=== PATIENT | female | born 1985 | race Caucasian/White ===

== ENCOUNTER 2017-06-17 21:53 | Emergency (ER) | payer BC, OTHER ==
[~2017-06-17] VITALS: Ht 165.1 cm; Wt 56.4 kg
[~2017-06-17 21:53] MED LIST: /MOM400 PO; ACET50TA PO; ANUS2.5C2 TOP; CALC600T7 PO; DOCU10ELUD PO; IBUP600T26 PO; IBUP80TA PO; LANOOIN21 TOP; NORC1TAB4 PO; PNV-CAP5 PO; TYLE325T5 PO; VITMTA PO
[2017-06-17] MEDS ORDERED: CALC600T57 PO (22:08)
[2017-06-17] MEDS ORDERED: MORPHINE 2 MG/ML 1ML SYRINGE IV ONE (22:45)
[2017-06-17 23:13] LABS: MEAN CORPUSCULAR HEMOGLOBIN 29.1 pg (27.0-33.0); MEAN CORPUSCULAR HGB CONC 32.7 g/dl (32.0-36.5); MEAN CORPUSCULAR VOLUME 89.1 fl (80.0-96.0); PLATELET COUNT, AUTOMATED 192 10^3/uL (150-450); RED CELL DISTRIBUTION WIDTH 12.1 % (11.5-14.5); WHITE BLOOD COUNT 9.2 10^3/uL (4.0-10.0)
[2017-06-17 23:15] LABS: ADD MANUAL DIFFER YES; DIFF SLIDE NUMBER 188; POSITIVE DIFF POS FLAG; POSITIVE MORPH POS FLAG; WBC SCAT POS FLAG
[2017-06-17 23:44] LABS: BASOPHILS 1 % (0-4)
[2017-06-17 23:47] LABS: ALBUMIN 4.1 GM/DL (3.2-5.2); ALBUMIN/GLOBULIN RATIO 1.41 (1.00-1.93); ALKALINE PHOSPHATASE 72 U/L (45-117); ALT/SGPT 22 U/L (12-78); ANION GAP 7 MEQ/L (8-16); AST/SGOT 7 U/L (7-37); BILIRUBIN,DIRECT 0.2 MG/DL (0.0-0.2); BILIRUBIN,TOTAL 0.7 MG/DL (0.2-1.0); BLOOD UREA NITROGEN 12 MG/DL (7-18); CALCIUM LEVEL 8.9 MG/DL (8.5-10.1); CARBON DIOXIDE LEVEL 29 MEQ/L (21-32); CHLORIDE LEVEL 106 MEQ/L (98-107); CREATININE FOR GFR 0.63 MG/DL (0.55-1.02); GLOMERULAR FILTRATION RATE > 60.0 (>60); GLUCOSE, FASTING 86 MG/DL (70-105); POTASSIUM SERUM 3.9 MEQ/L (3.5-5.1); SODIUM LEVEL 142 MEQ/L (136-145)
--- NOTE | 2017-06-18 00:20 | REPUSA ---
CLINICAL HISTORY: Pelvic pain. TECHNIQUE: Realtime sonographic images were obtained in multiple projections via TA approach. COMMENTS: The uterus is anteverted measuring 9.9x3.8x5.5 cm. The endometrial echo pattern is within normal limi ts measuring 6.5 mm. There is no evidence of free fluid within the pelvic cul-de-sac. The right ovary measures 2.5x1.9x1.9 cm and the left ovary measures 3.6x1.7 x 3 cm. Both ovaries are free of solid or cystic mass. There is no evidence for abnormal vascularity. IMPRESSION: Normal study. Thank you for your kind referral of this patient.
[2017-06-18] MEDS ORDERED: CIPR-249 PO (00:47)
[2017-06-18 00:55] VITALS: BP 104/55
[2017-06-18] MEDS ORDERED: CIPROFLOXACIN 500 MG TAB PO ONE (01:00)
== END 2017-06-18 01:05 | disposition home or self-care (01) ==
LOC: M ED 21:53
DX: N39.0 Urinary tract infection, site not specified (principal); Z79.899 Other long term (current) drug therapy; Z88.1 Allergy status to other antibiotic agents; Z88.2 Allergy status to sulfonamides; Z88.8 Allergy status to other drugs, medicaments and biological substances

== ENCOUNTER 2017-09-04 09:45 | Emergency (ER) | payer BC, OTHER ==
[2017-09-04] MEDS: ONDANSETRON 4MG/2ML VIAL (J2405) IV ×2 (10:15→11:59)
[2017-09-04] MEDS: NS 1,000 ML IV ×2 (10:31→13:02)
[2017-09-04] MEDS: MORPHINE 4 MG/ML 1ML VIAL (J2270) IV ×2 (10:31→11:51)
[2017-09-04 10:37] LABS: BASO % 0.3 % (0.0-1.0); HEMATOCRIT 46.2 % (36.0-47.0); HEMOGLOBIN 15.7 g/dl (12.0-16.0); IMMATURE GRANULOCYTE % 0.5 % (0-3.0); LYMPH % 1.2 % (24.0-44.0); MEAN CORPUSCULAR HEMOGLOBIN 29.2 pg (27.0-33.0); MONO # 0.2 10^3/uL (0.0-0.8); MONO % 2.7 % (0.0-5.0); NEUTROPHILS # 7.4 10^3/uL (1.8-7.7); NEUTROPHILS % 95.3 % (36.0-66.0); PLATELET COUNT, AUTOMATED 208 10^3/uL (150-450); RED BLOOD COUNT 5.37 10^6/uL (4.00-5.40); RED CELL DISTRIBUTION WIDTH 12.6 % (11.5-14.5); WHITE BLOOD COUNT 7.8 10^3/uL (4.0-10.0)
[2017-09-04 10:51] LABS: ANION GAP 8 MEQ/L (8-16); BLOOD UREA NITROGEN 15 MG/DL (7-18); CALCIUM LEVEL 8.9 MG/DL (8.5-10.1); CARBON DIOXIDE LEVEL 25 MEQ/L (21-32); CHLORIDE LEVEL 109 MEQ/L (98-107); CREATININE FOR GFR 0.95 MG/DL (0.55-1.30); GLOMERULAR FILTRATION RATE > 60.0 (>60); GLUCOSE, FASTING 147 MG/DL (70-100); POTASSIUM SERUM 3.6 MEQ/L (3.5-5.1); SODIUM LEVEL 142 MEQ/L (136-145)
[2017-09-04 11:09] LABS: HCG, SERUM QUANTITATIVE < 1.0 MIU/ML
[2017-09-04 11:23] LABS: LYMPH # 0.1 10^3/uL (1.5-4.5); POSITIVE DIFF POS FLAG
[2017-09-04] MEDS: LIDOCAINE 1% MDV 20ML VIAL IM (12:02)
[2017-09-04 12:31] LABS: INFLUENZA A AMPLIFICATION NEGATIVE (NEGATIVE); INFLUENZA B AMPLIFICATION NEGATIVE (NEGATIVE)
== END 2017-09-04 14:20 | disposition home or self-care (01) ==
LOC: M ED 09:45
DX: S01.81XA Laceration without foreign body of other part of head, initial encounter (principal); X58.XXXA Exposure to other specified factors, initial encounter; Y92.9 Unspecified place or not applicable; Y93.9 Activity, unspecified; R55 Syncope and collapse; R11.2 Nausea with vomiting, unspecified; R19.7 Diarrhea, unspecified; Z79.899 Other long term (current) drug therapy; Z88.2 Allergy status to sulfonamides; Z88.8 Allergy status to other drugs, medicaments and biological substances
CPT/HCPCS: J2270

== ENCOUNTER → 2018-08-16 | Outpatient (REF) | payer OTHER ==
[~2018-08-16] MED LIST changes: +CALC600T57 PO; +CIPR-249 PO; +MAPA500T2 PO; +NORCOTAB PO; +ZOFR4TAB14 PO
[2018-08-16 11:44] LABS: HEMATOCRIT 45.8 % (36.0-47.0); HEMOGLOBIN 14.8 g/dl (12.0-15.5); MEAN CORPUSCULAR HEMOGLOBIN 29.8 pg (27.0-33.0); MEAN CORPUSCULAR HGB CONC 32.3 g/dl (32.0-36.5); MEAN CORPUSCULAR VOLUME 92.3 fl (80.0-96.0); PLATELET COUNT, AUTOMATED 200 10^3/uL (150-450); RED BLOOD COUNT 4.96 10^6/uL (4.00-5.40)
[2018-08-16 12:04] LABS: ALBUMIN 4.3 GM/DL (3.2-5.2); ALT/SGPT 27 U/L (12-78); BILIRUBIN,DIRECT 0.2 MG/DL (0.0-0.2); BILIRUBIN,TOTAL 0.7 MG/DL (0.2-1.0); CHOLESTEROL LEVEL 162 MG/DL (<200); CHOLESTEROL RISK RATIO 1.905 (<5); HCG, SERUM QUANTITATIVE < 1.0 MIU/ML; HDL CHOLESTEROL 85 MG/DL (>40); LDL CHOLESTEROL 67 MG/DL (<100); NON-HDL-C 77 MG/DL; TOTAL PROTEIN 6.9 GM/DL (6.4-8.2); TRIGLYCERIDES LEVEL 49 MG/DL (<150)
== END ==
LOC: M SFHCPLAZ 08:59
PROVIDERS: ATTEND Dermatology
DX: Z79.899 Other long term (current) drug therapy (principal)

== ENCOUNTER → 2018-09-17 | Outpatient (REF) | payer OTHER ==
[2018-09-17 18:51] LABS: URINE PREG TEST NEGATIVE (NEGATIVE)
== END ==
LOC: M SFHCPLAZ 16:10
PROVIDERS: ATTEND Dermatology
DX: Z79.899 Other long term (current) drug therapy (principal)

== ENCOUNTER → 2018-10-15 | Outpatient (REF) | payer OTHER ==
[2018-10-15 17:29] LABS: HEMATOCRIT 40.9 % (36.0-47.0); HEMOGLOBIN 13.1 g/dl (12.0-15.5); MEAN CORPUSCULAR HEMOGLOBIN 29.4 pg (27.0-33.0); MEAN CORPUSCULAR VOLUME 91.9 fl (80.0-96.0); PLATELET COUNT, AUTOMATED 195 10^3/uL (150-450); RED BLOOD COUNT 4.45 10^6/uL (4.00-5.40); WHITE BLOOD COUNT 4.5 10^3/uL (4.0-10.0)
[2018-10-15 17:49] LABS: ALBUMIN 3.9 GM/DL (3.2-5.2); ALT/SGPT 27 U/L (12-78); BILIRUBIN,DIRECT < 0.1 MG/DL (0.0-0.2); BILIRUBIN,TOTAL 0.4 MG/DL (0.2-1.0); CHOLESTEROL LEVEL 154 MG/DL (<200); HCG, SERUM QUALITATIVE NEGATIVE (NEGATIVE); HDL CHOLESTEROL 70 MG/DL (>40); LDL CHOLESTEROL 66 MG/DL (<100); NON-HDL-C 84 MG/DL; TOTAL PROTEIN 6.6 GM/DL (6.4-8.2); TRIGLYCERIDES LEVEL 91 MG/DL (<150)
== END ==
LOC: M SFHCPLAZ 15:05
PROVIDERS: ATTEND Dermatology
DX: Z79.899 Other long term (current) drug therapy (principal)

== ENCOUNTER → 2018-11-12 | Outpatient (REF) | payer OTHER ==
[~2018-11-12] MED LIST changes: -/MOM400 PO; -ACET50TA PO; -DOCU10ELUD PO; +DOCU5LIQ PO; +HYDR-3715 PO; +MAPA500T17 PO; +MILK10SU PO; -NORC1TAB4 PO; +NORC1TAB7 PO; -NORCOTAB PO
[2018-11-12 18:34] LABS: HEMATOCRIT 43.8 % (36.0-47.0); HEMOGLOBIN 14.2 g/dl (12.0-15.5); MEAN CORPUSCULAR HEMOGLOBIN 29.2 pg (27.0-33.0); MEAN CORPUSCULAR HGB CONC 32.4 g/dl (32.0-36.5); MEAN CORPUSCULAR VOLUME 89.9 fl (80.0-96.0); PLATELET COUNT, AUTOMATED 224 10^3/uL (150-450); RED BLOOD COUNT 4.87 10^6/uL (4.00-5.40); WHITE BLOOD COUNT 3.5 10^3/uL (4.0-10.0)
[2018-11-12 18:53] LABS: ALBUMIN 4.6 GM/DL (3.2-5.2); ALT/SGPT 30 U/L (12-78); BILIRUBIN,DIRECT < 0.1 MG/DL (0.0-0.2); BILIRUBIN,TOTAL 0.3 MG/DL (0.2-1.0); CHOLESTEROL LEVEL 163 MG/DL (<200); CHOLESTEROL RISK RATIO 2.432 (<5); HDL CHOLESTEROL 67 MG/DL (>40); LDL CHOLESTEROL 83 MG/DL (<100); NON-HDL-C 96 MG/DL; TOTAL PROTEIN 7.3 GM/DL (6.4-8.2); TRIGLYCERIDES LEVEL 65 MG/DL (<150)
[2018-11-12 20:04] LABS: HCG, SERUM QUALITATIVE NEGATIVE (NEGATIVE)
== END ==
LOC: M SFHCPLAZ 15:52
PROVIDERS: ATTEND Dermatology
DX: Z79.899 Other long term (current) drug therapy (principal)

== ENCOUNTER → 2019-09-20 | Outpatient (CLI) | payer BC, OTHER ==
[~2019-09-20] MED LIST changes: +CALC-190 PO; +MULTCAP PO; +OXYC1TAB23 PO; +[UNRECOGNIZED DRUG - OTHER] PO
--- NOTE | 2019-09-20 09:06 | REPVR ---
PROCEDURE INFORMATION: Exam: CT Abdomen And Pelvis Without Contrast Exam date and time: 09/20/2019 8:22 AM Age: 34 years old Clinical indication: Abdominal pain; Localized; Left lower quadrant (llq); Prior surgery; Surgery date: 1-6 months; Surgery type: Hysterectomy 07/31/19; Patient HX: Pain on left side near incision from hysterectomy; Additional info: Pelvic pain TECHNIQUE: Imaging protocol: Computed tomography of the abdomen and pelvis without contrast. Radiation optimization: All CT scans at this facility use at least one of these dose optimization techniques: automated exposure control; mA and/or kV adjustment per patient size (includes targeted exams where dose is matched to clinical indication); or iterative reconstruction. COMPARISON: CT ABD PELVIS WITH CONTRAST 06/18/2015 3:08 PM FINDINGS: Liver: Normal. No mass. Gallbladder and bile ducts: Normal. No calcified stones. No ductal dilation. Pancreas: Normal. No ductal dilation. Spleen: Normal. No splenomegaly. Adrenals: Normal. No mass. Kidneys and ureters: Normal. No hydronephrosis. Stomach and bowel: No significant acute abnormality identified in the abdomen or pelvis, except for a moderate amount of desiccated fecal loading throughout most of the large bowel. The patient could be somewhat constipated. Appendix: The appendix is normal, posterior to the cecum on image 82 of series 201. Intraperitoneal space: No free intraperitoneal air or fluid. Vasculature: Unremarkable. No abdominal aortic aneurysm. Lymph nodes: Unremarkable. No enlarged lymph nodes. Bladder: Unremarkable as visualized. Reproductive: Prior hysterectomy. Bones/joints: Unremarkable. No acute fracture. Soft tissues: Unremarkable. IMPRESSION: 1. No significant acute abnormality identified in the abdomen or pelvis, except for a moderate amount of desiccated fecal loading throughout most of the large bowel. The patient could be somewhat constipated. 2. Prior hysterectomy. 3. No free intraperitoneal air or fluid. Electronically signed by: Fredo Aviles On 09/20/2019 09:06:04 AM
== END ==
LOC: M RAD 08:12
PROVIDERS: ATTEND Specialist
DX: R10.2 Pelvic and perineal pain (principal)

== ENCOUNTER 2020-09-02 11:22 | Emergency (ER) | payer BC, OTHER ==
[~2020-09-02] VITALS: Ht 165.1 cm; Wt 60.2 kg
[2020-09-02] MEDS ORDERED: EXCETAB33 PO (11:35)
[2020-09-02 13:05] LABS: BASO % 0.8 % (0.0-1.0); HEMATOCRIT 41.7 % (36.0-47.0); HEMOGLOBIN 13.4 g/dl (12.0-15.5); LYMPH # 0.9 10^3/uL (1.5-5.0); LYMPH % 24.4 % (24.0-44.0); MEAN CORPUSCULAR HEMOGLOBIN 29.6 pg (27.0-33.0); MEAN CORPUSCULAR HGB CONC 32.1 g/dl (32.0-36.5); MEAN CORPUSCULAR VOLUME 92.3 fl (80.0-96.0); MONO # 0.4 10^3/uL (0.0-0.8); MONO % 10.1 % (2.0-8.0); NEUTROPHILS # 2.3 10^3/uL (1.5-8.5); NEUTROPHILS % 64.4 % (36.0-66.0); PLATELET COUNT, AUTOMATED 179 10^3/uL (150-450); RED BLOOD COUNT 4.52 10^6/uL (4.00-5.40); WHITE BLOOD COUNT 3.6 10^3/uL (4.0-10.0)
[2020-09-02 13:35] LABS: INR 0.99; PARTIAL THROMBOPLASTIN TIME 25.5 SECONDS (24.2-38.5); PROTHROMBIN TIME 13.3 SECONDS (12.5-14.3)
[2020-09-02 13:38] LABS: ALT/SGPT 26 U/L (12-78); BILIRUBIN,DIRECT 0.2 MG/DL (0.0-0.2); BILIRUBIN,TOTAL 0.6 MG/DL (0.2-1.0); BLOOD UREA NITROGEN 12 MG/DL (7-18); CALCIUM LEVEL 9.3 MG/DL (8.5-10.1); CARBON DIOXIDE LEVEL 27 MEQ/L (21-32); CHLORIDE LEVEL 106 MEQ/L (98-107); CK-MB VALUE MASS < 1.0 NG/ML (<3.6); CPK CREATINE PHOSPHOKINASE 61 U/L (26-192); CREATININE FOR GFR 0.74 MG/DL (0.55-1.30); GLOMERULAR FILTRATION RATE > 60.0 (>60); GLUCOSE, FASTING 87 MG/DL (70-100); LIPASE 46 U/L (73-393); MB/CK RELATIVE INDEX 1.64 (< OR =4); POTASSIUM SERUM 3.9 MEQ/L (3.5-5.1); SODIUM LEVEL 141 MEQ/L (136-145); TOTAL PROTEIN 6.6 GM/DL (6.4-8.2); TROPONIN I < 0.02 NG/ML (< 0.10)
[2020-09-02] MEDS ORDERED: ISOVUE-370 76% 100ML VIAL As Ordered ONE (14:04)
--- NOTE | 2020-09-02 14:26 | REP ---
INDICATION: chest pain, sob R/O PE. COMPARISON: None. TECHNIQUE: Contrast dose: 75 ML of Isovue [address] technique: Helical scanning is acquired and overlapping 1.5 mm and contiguous 3 mm axial images are reformatted. In addition, maximum intensity projection and multiplanar re-formation images are generated in sagittal and coronal imaging projections. FINDINGS: There is good opacification in the pulmonary arterial tree. There is no evidence of vessel cut off or filling defect to suggest pulmonary embolus. Homogeneous opacity is seen in the thoracic aorta. There is no evidence of aneurysm or dissection. Lung window settings demonstrate clear well inflated lungs. No evidence of infiltrate, mass, atelectasis, or effusion. No pericardial effusion is seen. No hilar or mediastinal mass or adenopathy is observed. In the upper abdomen, normal adrenal glands are seen. The visualized upper abdominal structures are unremarkable. IMPRESSION: No CT evidence of pulmonary embolus. Negative CT pulmonary angiogram. <Electronically signed by Michael Chadwick > 09/02/20 [id number]
[2020-09-02 18:03] LABS: CK-MB VALUE MASS < 1.0 NG/ML (<3.6); CPK CREATINE PHOSPHOKINASE 55 U/L (26-192); MB/CK RELATIVE INDEX 1.82 (< OR =4); TROPONIN I < 0.02 NG/ML (< 0.10)
[2020-09-02 18:30] VITALS: BP 118/53
--- NOTE | 2020-09-04 08:06 | ECGEPIP ---
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
--- NOTE | 2020-09-04 08:10 | ECGEPIP ---
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
== END 2020-09-02 19:02 | disposition home or self-care (01) ==
LOC: M ED 11:22
DX: R07.9 Chest pain, unspecified (principal); R94.31 Abnormal electrocardiogram [ECG] [EKG]; R06.02 Shortness of breath; Z88.2 Allergy status to sulfonamides; Z88.8 Allergy status to other drugs, medicaments and biological substances
CPT/HCPCS: 36415; 71275; 80048; 80076; 82550; 82553; 83690; 84439; 84443; 84484; 85025; 85610; 85730; 93005; 93041; 94760; 99285; Q9967

== ENCOUNTER 2021-05-20 10:45 | Emergency (ER) | payer BC, OTHER ==
[~2021-05-20] VITALS: Ht 165.1 cm; Wt 54.8 kg
[~2021-05-20 10:45] MED LIST changes: +EXCETAB33 PO
--- OUTSIDE RECORDS SUMMARY | 2021-05-20 10:51 | CCD ---
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 Name Role Phone David Conrad Unavailable PROBLEMS Type Condition ICD9-CM Code [id number] Code Onset Dates Condition S tatus W/U Status Risk SNOMED Code Notes Problem Chronic idiopathic pericarditis, unspecified com plication status I31.9 Active confirmed 27994794 Problem Gastro-esophageal reflux disease without esophagitis K21.9 Active confirmed 988537144 Problem Chest pain at rest R07.9 Active confirmed [id number] ALLERGIES Allergen (clinical drug ingredient) Drug/Non Drug Allergy do cumented on EMR Reaction Allergy Type Onset Date Status Florinef Unknown Non Drug Allergy Active toradol anaphylaxis Non Drug Allergy Active Amitriptyline Unknown Non Drug Allergy Activ e sulfa drugs hives Non Drug Allergy Active ENCOUNTERS from 1986 to 2021-02-18 Encounter Location Date Provider Diagnosis [place] [id number] David Conrad IMMUNIZATIONS Vaccine Route Administration Date Status Depo-Medrol 80 mg/mL IM Intramuscular December 21, 2020 Administer ed Varicella 19 or > SC Subcutaneous December 18, 2020 Administered Varicella 19 or > SC Subcutaneous November 19, 2020 Administered Tdap 19 or > IM Intramuscular November 19, 2020 Administered SOCIAL HISTORY Tobacco Use: Social History Observation Description Date Details (start date - stop date) Never Smoker Sex Assigned At : Social History Observation Description Sex Assigned At Unknown Alcohol Screen (Audit-C) Question Answer Notes Did you have a drink containing alcohol in the past year? Ye s Points 4 Interpretation Positive How often did you have 6 or more drinks on one occasio n in the past year? Never (0 points) How many drinks did you have on a typica l day when you were drinking in the past year? 1 or 2 (0 points) How often did you have a drink containing alcohol in t he past year? Four or more times a week (4 points) Tobacco Use/Smoking Question Answer Notes Patient is a never smoker REASON FOR REFERRAL No Information VITAL SIGNS No information MEDICATIONS Medication SIG (Take, Route, Frequency, Duration) Notes Start Da te End Date Status Metoprolol Succinate ER 25 MG 1 tablet Orally twice a day Active Multivitamin Adult - Orally Acti ve Calcium Active Vitamin C 500 MG Orally Active Omeprazole 20 MG 1 capsule 30 minutes before morning meal Orally Once a day for 30 day(s) Dec, Active PROCEDURES No Information RESULTS No Results REASON FOR VISIT No Information MEDICAL (GENERAL) HISTORY Type Description Date Surgical History bilateral knee surgery Surgical History 6 d&c Surgical History Tubal ligation Surgical History Partial hysterectomy Surgical History Rt wrist surgery cyst removal Hospitalization History see previous surgery Goals Section No Information Health Concerns No Information MEDICAL EQUIPMENT No Information MENTAL STATUS No Information FUNCTIONAL STATUS No Information ASSESSMENTS No Information PLAN OF TREATMENT Medication Medication Name Sig Start Date Stop Date Omeprazole 20 MG 1 capsule 30 minutes before morning meal Orally Once a day for 30 day(s) Dec, Next Appt Details Provider Name:David Conrad, 2021-02-26 1 1:00:00 AM, [address] [place] [address], [id number], Provider Name:David Conrad, 2021-11-22 0 8:00:00 AM, [address] [place] [address], [id number], Insurance Providers Payer Name Payer Address Payer Phone Insured Name Patient Relati onship to Insured Coverage Start Date Coverage End Date [place] Plan [address] [facility] [phone] SA SADIE MORENO A self
--- OUTSIDE RECORDS SUMMARY | 2021-05-20 10:52 | CCD ---
Author Author [facility] Organization [facility] Address Unknown Phone Unavailable Care Team Providers Care Oral Pathologist Name Role Phone Lay Faroo[address] Unavailable Unavailable Lay Farooq [address] Unavailable Unavailable Lay Far[address] Unavailable Unavailable Lay [address] Unavailable Unavailable Lay Farooq [address] Unavailable Unavailable Lay Farooq [address] Unavailable Unavailable Lay Farooq [address] Unavailable Unavailable Lay Farooq LAB[address] Unavailable Unavailable Lay Farooq LABORER RO[address] Unavailable Unavailable Lay Farooq LABORER RO[address] Unavailable Unavailable Farooq, Lay LABORER ROAD Unavailable Unavailable Farooq, Lay LABORER ROAD Unavailable Unavailable Farooq, Lay LABORER ROAD Unavailable Unavailable Farooq, Lay LABORER ROAD Unavailable Unavailable Farooq, Lay [address] Unavailable Unavailable Farooq, Lay [address] Unavailable Unavailable Farooq, Lay [address] Unavailable Unavailable Farooq, Lay [address] Unavailable Unavailable Farooq, Lay [address] Unavailable Unavailable Farooq, Lay [address] Unavailable Unavailable Farooq, Lay LABORER ROAD Unavailable Unavailable Farooq, Lay LABORER ROAD Unavailable Unavailable Farooq, Lay LABORER ROAD Unavailable Unavailable Farooq, Lay LABORER ROAD Unavailable Unavailable Souleymane Simmons MD Unavailable Unavailable Souleymane Simmons MD Unavailable Unavailable Souleymane Simmons MD Unavailable Unavailable Souleymane Simmons MD Unavailable Unavailable Souleymane Simmons MD Unavailable Unavailable Souleymane Simmons MD Unavailable Unavailable Souleymane Simmons MD Unavailable Unavailable Souleymane Simmons MD Unavailable Unavailable Souleymane Simmons MD Unavailable Unavailable Souleymane Simmons MD Unavailable Unavailable Souleymane Simmons MD Unavailable Unavailable Souleymane Simmons MD Unavailable Unavailable Souleymane Simmons MD Unavailable Unavailable oSuleymane Simmons MD Unavailable Unavailable Souleymane Simmons MD Unavailable Unavailable Souleymane Simmons MD Unavailable Unavailable Souleymane Simmons MD Unavailable Unavailable Souleymane Simmons MD Unavailable Unavailable Souleymane Simmons MD Unavailable Unavailable Souleymane Simmons MD Unavailable Unavailable Souleymane Simmons MD Unavailable Unavailable Souleymane Simmons MD Unavailable Unavailable Souleymane Simmons MD Unavailable Unavailable Souleymane Simmons MD Unavailable Unavailable Souleymane Simmons MD Unavailable Unavailable Souleymane Simmons MD Unavailable Unavailable Souleymane Simmons MD Unavailable Unavailable Souleymane Simmons MD Unavailable Unavailable Souleymane Simmons MD Unavailable Unavailable Souleymane Simmons MD Unavailable Unavailable Souleymane Simmons MD Unavailable Unavailable Souleymane Simmons MD Unavailable Unavailable Souleymane Simmons MD Unavailable Unavailable Souleymane Simmons MD Unavailable Unavailable Souleymane Simmons MD Unavailable Unavailable Souleymane Simmons MD Unavailable Unavailable Souleymane Simmons MD Unavailable Unavailable Souleymane Simmons MD Unavailable Unavailable Souleymane Simmons MD Unavailable Unavailable Souleymane Simmons MD Unavailable Unavailable Souleymane Simmons MD Unavailable Unavailable Souleymane Simmons MD Unavailable Unavailable Souleymane Simmons MD Unavailable Unavailable Souleymane Simmons MD Unavailable Unavailable Souleymane Simmons MD Unavailable Unavailable Souleymane Simmons MD Unavailable Unavailable Souleymane Simmons MD Unavailable Unavailable Souleymane Simmons MD Unavailable Unavailable Souleymane Simmons MD Unavailable Unavailable Souleymane Simmons MD Unavailable Unavailable Souleymane Simmons MD Unavailable Unavailable Souleymane Simmons MD Unavailable Unavailable Souleymane Simmons MD Unavailable Unavailable Souleymane Simmons MD Unavailable Unavailable Souleymane Simmons MD Unavailable Unavailable Souleymane Simmons MD Unavailable Unavailable Souleymane Simmons MD Unavailable Unavailable Souleymane Simmons MD Unavailable Unavailable Osborn, L Katherine PA Unavailable Unavailable Osborn, L Katherine PA Unavailable Unavailable Osborn, L Katherine PA Unavailable Unavailable Osborn, L Katherine PA Unavailable Unavailable Osborn, L Katherine PA Unavailable Unavailable Osborn, L Katherine PA Unavailable Unavailable Osborn, L Katherine PA Unavailable Unavailable Osborn, L Katherine PA Unavailable Unavailable Osborn, L Katherine PA Unavailable Unavailable Osborn, L Katherine PA Unavailable Unavailable Osborn, L Katherine PA Unavailable Unavailable Osborn, L Katherine PA Unavailable Unavailable Osborn, L Katherine PA Unavailable Unavailable Osborn, L Katherine PA Unavailable Unavailable Osborn, L Katherine PA Unavailable Unavailable Osborn, L Katherine PA Unavailable Unavailable Osborn, L Katherine PA Unavailable Unavailable Osborn, L Katherine PA Unavailable Unavailable Osborn, L Katherine PA Unavailable Unavailable Osborn, L Katherine PA Unavailable Unavailable Osborn, L Katherine PA Unavailable Unavailable Osborn, L Katherine PA Unavailable Unavailable Osborn, L Katherine PA Unavailable Unavailable Osborn, L Katherine PA Unavailable Unavailable Osborn, L Katherine PA Unavailable Unavailable Osborn, L Katherine PA Unavailable Unavailable Osborn, L Katherine PA Unavailable Unavailable Osborn, L Katherine PA Unavailable Unavailable Osborn, L Katherine PA Unavailable Unavailable Osborn, L Katherine PA Unavailable Unavailable Osborn, L Katherine PA Unavailable Unavailable Osborn, L Katherine PA Unavailable Unavailable Osborn, L Katherine PA Unavailable Unavailable Osborn, L Katherine PA Unavailable Unavailable Osborn, L Katherine PA Unavailable Unavailable Osborn, L Katherine PA Unavailable Unavailable Osborn, L Katherine PA Unavailable Unavailable Osborn, L Katherine PA Unavailable Unavailable Osborn, L Katherine PA Unavailable Unavailable Dragan Dunlap MD Unavailable Unavailable Dragan Dunlap MD Unavailable Unavailable Dragan Love MD Unavailable Unavailable Dragan Love MD Unavailable Unavailable Dragan Love MD Unavailable Unavailable Dragan Love MD Unavailable Unavailable Dragan Love MD Unavailable Unavailable Dragan Love MD Unavailable Unavailable Dragan Love MD Unavailable Unavailable Dragan Love MD Unavailable Unavailable Dragan Love MD Unavailable Unavailable Dragan Love MD Unavailable Unavailable Dragan Love MD Unavailable Unavailable Dragan Love MD Unavailable Unavailable Dragan Love MD Unavailable Unavailable Dragan Love MD Unavailable Unavailable Dragan Love MD Unavailable Unavailable Dragan Loev MD Unavailable Unavailable Dragan Love MD Unavailable Unavailable Dragan Love MD Unavailable Unavailable Dragan Love MD Unavailable Unavailable Dragan Love MD Unavailable Unavailable Dragan Love MD Unavailable Unavailable Dragan Love MD Unavailable Unavailable Dragan Love MD Unavailable Unavailable Dragan Love MD Unavailable Unavailable Dragan Love MD Unavailable Unavailable RUBIN, 0000{ Unavailable Unavailable Moris Conrad MD Unavailable Unavailable Moris Conrad MD Unavailable Unavailable Moris Conrad MD Unavailable Unavailable Moris Conrad MD Unavailable Unavailable Moris Conrad MD Unavailable Unavailable Moris Conrad MD Unavailable Unavailable Moris Conrad MD Unavailable Unavailable Moris Conrad MD Unavailable Unavailable Moris Conrad MD Unavailable Unavailable Moris Conrad MD Unavailable Unavailable Moris Conrad MD Unavailable Unavailable Moris Conrad MD Unavailable Unavailable Moris Conrad MD Unavailable Unavailable Moris Conrad MD Unavailable Unavailable Moris Conrad MD Unavailable Unavailable Moris Conrad MD Unavailable Unavailable Moris Conrad MD Unavailable Unavailable Moris Conrad MD Unavailable Unavailable Moris Conrad MD Unavailable Unavailable Moris Conrad MD Unavailable Unavailable Moris Conrad MD Unavailable Unavailable Moris Conrad MD Unavailable Unavailable Moris Conrad MD Unavailable Unavailable Moris Conrad MD Unavailable Unavailable Moris Conrad MD Unavailable Unavailable Moris Conrad MD Unavailable Unavailable Moris Conrad MD Unavailable Unavailable Moris Conrad MD Unavailable Unavailable Moris Conrad MD Unavailable Unavailable Moris Conrad MD Unavailable Unavailable Moris Conrad MD Unavailable Unavailable Conrad, Sparrow Ramesh MD Unavailable Unavailable Conrad, Sparrow Ramesh MD Unavailable Unavailable Conrad, Sparrow Ramesh MD Unavailable Unavailable Conrad, Sparrow Ramesh MD Unavailable Unavailable Conrad, Sparrow Ramesh MD Unavailable Unavailable Conrad, Sparrow Ramesh MD Unavailable Unavailable Conrad, Sparrow Ramesh MD Unavailable Unavailable Conrad, Sparrow Ramesh MD Unavailable Unavailable Conrad, Sparrow Ramesh MD Unavailable Unavailable Conrad, Sparrow Ramesh MD Unavailable Unavailable Conrad, Sparrow Ramesh MD Unavailable Unavailable Conrad, Sparrow Ramesh MD Unavailable Unavailable Re-disclosure Warning The records that you are about to access may contain information from federally-assisted alcohol or drug abuse programs. If such information is present, then the following federally mandated warning applies: This information has been disclosed to you from records protected by federal confidentiality rules (42 CFR part 2). The federal rules prohibit you from making any further disclosure of this information unless further disclosure is expressly permitted by the written consent of the person to whom it pertains or as otherwise permitted by 42 CFR part 2. A general authorization for the release of medical or other information is NOT sufficient for this purpose. The Federal rules restrict any use of the information to criminally investigate or prosecute any alcohol or drug abuse patient.The records that you are about to access may contain highly sensitive health information, the redisclosure of which is protected by Article 27-F of the [facility] Public Health law. If you continue you may have access to information: Regarding HIV / AIDS; Provided by facilities licensed or operated by the [facility] Office of Mental Health; or Provided by the [facility] Office for People With Developmental Disabilities. If such information is present, then the following [facility] mandated warning applies: This information has been disclosed to you from confidential records which are protected by state law. State law prohibits you from making any further disclosure of this information without the specific written consent of the person to whom it pertains, or as otherwise permitted by law. Any unauthorized further disclosure in violation of state law may result in a fine or long-term sentence or both. A general authorization for the release of medical or other information is NOT sufficient authorization for further disc losure. Allergies and Adverse Reactions Type Description Substance Reaction Status Data Source(s ) Drug allergy Drug allergy Sulfa (Sulfonamide Antibiotics) [facility] Drug allergy Drug allergy niacin [facility] Drug allergy Drug allergy ketorolac (From Toradol) [facility] Drug allergy Drug allergy fludrocortisone (From Florinef) [facility] Propensity to adverse reactions KETOROLAC TROMETHAMINE Ketorolac Tr omethamine Active [facility] Propensity to adverse reactions SULFA ANTIBIOTICS Sulfa Antibiotics Active [facility] Propensity to adverse reactions FLUDROCORTISONE Fludrocortisone Active [facility] Propensity to adverse reactions AMITRIPTYLINE Amitriptyline Active [facility] Family History Family Member Name Family Member Gender Family Member Status Date o f Status Description Data Source(s) Unknown Unknown Problem [facility] ([facility] ) Encounters Encounter Providers Location Date Indications Data Source(s ) Emergency Attender: Kate Dunlap MD ED-ED 1 07/19/2020 09:48:00 AM EDT - 05/19/2021 11:03:00 AM EDT [facility] Patient discharged. Out[facility] [address] [facility] [address] [facility] [address] 02/18/2021 12:00:00 AM EDT eCW1 ([facility]) Outpatient Attender: Ramesh Conrad MD 12/30/2020 08:33:00 AM EDT [facility] Outpatient [address] [facility] [address] [place] [address] 12/30/2020 12:00:00 AM EDT eCW1 ([facility]) Outpatient Attender: Gurwinder Simmons MD [facility] Internal Med at [facility] 12/29/2020 11:00:00 AM EDT [facility]) Outpatient Attender: 0000{ [place] 12/22/2020 09:30:00 AM E DT [facility] Outpatient Attender: Gurwinder Simmons MD 12/22/2020 09:3 0:00 AM EDT OTHER CHEST PAIN [facility] OTHER CHEST PAIN Outpatient Attender: Ramesh Conrad MD 12/21/2020 09:20:00 AM EDT [facility] Outpatient [address] [facility] [address] [facility] [address] 12/21/2020 12:00:00 AM EDT eCW1 ([facility]) Outpatient Attender: Ramesh Conrad MD 12/18/2020 08:22:00 AM EDT [facility] Outpatient [address] [facility] [address] [place] [address] 12/18/2020 12:00:00 AM EDT eCW1 ([facility] Outpatient Attender: Ramesh Conrad MD 11/19/2020 10:24:00 AM EDT [facility] Outpatient [address] [facility] [address] [place] [address] 11/19/2020 12:00:00 AM EDT eCW1 ([facility]) Outpatient Attender: Gurwinder Simmons MD [facility] Internal Med at [facility] 11/03/2020 11:00:00 AM EDT [facility] ([facility]) [place] [address] [address] 10/07/2020 12:00:00 AM EDT [facility] Outpatient Attender: Gurwinder Simmons MD [facility] Internal Med at [facility] 10/06/2020 01:00:00 PM EDT [facility] ([facility]) [place]patient [address] [address] 10/05/2020 12:00:00 AM EDT [facility] Outpatient Attender: Pamela Love MD 0 09/17/2020 04:16:20 PM EST - 09/17/2020 04:40:39 PM EST [facility] ([facility]) Outpatient Attender: Katherine [email or web address].[email or web address].SAAD 09/2020 12:00:00 AM EST - 09/16/2020 04:08:39 PM EST [facility] Outpatient Attender: Lay HAWKINS [facility] 05/07/2020 0 3:20:00 PM EDT [facility] Outpatient [address] [facility] [address] [place] [address] 05/07/2020 12:00:00 AM EDT eCW1 ([facility]) Immunizations Vaccine Date Status Description Data Source(s) 12/21/2020 10:05:00 AM EDT completed e CW1 ([facility]) 12/21/2020 10:05:00 AM EDT completed e CW1 ([facility]) 12/21/2020 10:05:00 AM EDT completed e CW1 ([facility]) 12/21/2020 10:05:00 AM EDT completed e CW1 ([facility]) varicella 12/18/2020 08:45:00 AM EDT completed e CW1 ([facility]) varicella 12/18/2020 08:45:00 AM EDT completed e CW1 ([facility]) varicella 12/18/2020 08:45:00 AM EDT completed e CW1 ([facility]) varicella 12/18/2020 08:45:00 AM EDT completed e CW1 ([facility]) Tdap 11/19/2020 01:22:00 PM EDT completed e CW1 ([facility]) varicella 11/19/2020 01:22:00 PM EDT completed e CW1 ([facility]) Tdap 11/19/2020 01:22:00 PM EDT completed e CW1 ([facility]) varicella 11/19/2020 01:22:00 PM EDT completed e CW1 ([facility]) Tdap 11/19/2020 01:22:00 PM EDT completed e CW1 ([facility]) varicella 11/19/2020 01:22:00 PM EDT completed e CW1 ([facility]) Tdap 11/19/2020 01:22:00 PM EDT completed e CW1 ([facility]) varicella 11/19/2020 01:22:00 PM EDT completed e CW1 ([facility]) Tdap 11/19/2020 01:22:00 PM EDT completed e CW1 ([facility]) varicella 11/19/2020 01:22:00 PM EDT completed e CW1 ([facility]) Medications Medication Brand Name Start Date Product Form Dose Route Admi nistrative Instructions Pharmacy Instructions Status Indications Reaction Description Data Source(s) 20 mg 12/30/2020 12:00:00 AM EDT capsule,delayed release (DR/EC) 30 TAKE ONE CAPSULE BY MOUTH EVERY DAY 30 MINUTES BEFORE MORNING MEAL TAKE ONE CAPSULE BY MOUTH EVERY DAY 30 MINUTES BEFORE MORNING MEAL SOLD: 02/03/2021 [facility] Omeprazole 20 MG Delayed Release Oral Capsule Omeprazole 20 MG 12/30/2020 12:00:00 AM EDT active Omeprazo le 20 MG eCW1 ([facility]) 20 mg 12/30/2020 12:00:00 AM EDT capsule,delayed release (DR/EC) 30 TAKE ONE CAPSULE BY MOUTH EVERY DAY 30 MINUTES BEFORE MORNING MEAL TAKE ONE CAPSULE BY MOUTH EVERY DAY 30 MINUTES BEFORE MORNING MEAL SOLD: 12/30/2020 [facility] 20 mg 12/30/2020 12:00:00 AM EDT capsule,delayed release (DR/EC) 30 TAKE ONE CAPSULE BY MOUTH EVERY DAY 30 MINUTES BEFORE MORNING MEAL TAKE ONE CAPSULE BY MOUTH EVERY DAY 30 MINUTES BEFORE MORNING MEAL SOLD: 03/19/2021 [facility] 20 mg 12/30/2020 12:00:00 AM EDT capsule,delayed release (DR/EC) 30 TAKE ONE CAPSULE BY MOUTH EVERY DAY 30 MINUTES BEFORE MORNING MEAL TAKE ONE CAPSULE BY MOUTH EVERY DAY 30 MINUTES BEFORE MORNING MEAL SOLD: 05/01/2021 [facility] Omeprazole 20 MG Delayed Release Oral Capsule Omeprazole 20 MG 12/30/2020 12:00:00 AM EDT active Omeprazo le 20 MG eCW1 ([facility]) Omeprazole 20 MG Delayed Release Oral Capsule Omeprazole 20 MG 12/30/2020 12:00:00 AM EDT active Omeprazo le 20 MG eCW1 ([facility]) 25 mg 11/06/2020 12:00:00 AM EDT tablet extended release 24 hr 180 TAKE ONE TABLET BY MOUTH TWICE A DAY TAKE ONE TABLET BY MOUTH TWICE A DAY SOLD: 11/11/2020 [facility] 24 HR metoprolol succinate 25 MG Extended Release Oral Tablet Metoprolol Succinate ER 10/20/2020 12:00:00 AM EDT ORAL active MEDENT ([facility]) 25 mg 10/20/2020 12:00:00 AM EDT tablet extended release 24 hr 45 TAKE ONE- HALF TABLET BY MOUTH EVERY DAY TAKE ONE-HALF TABLET BY MOUTH EVERY DAY SOLD: 10/20/2020 [facility] 0.6 mg 10/06/2020 12:00:00 AM EDT tablet 6 TAKE ONE TABLET BY MOUTH TWICE A DAY TAKE ONE TABLET BY MOUTH TWICE A DAY SOLD: 10/06/2020 [facility] Colchicine 0.6 MG Oral Tablet Colchicine 10/06/2020 12:00:00 AM EDT ORAL completed [facility] ([facility]) 0.6 mg 10/06/2020 12:00:00 AM EDT tablet 174 TAKE ONE TABLET BY MOUTH TWICE A DAY TAKE ONE TABLET BY MOUTH TWICE A DAY SOLD: 10/08/2020 [facility] 100 mg 03/22/2020 12:00:00 AM EDT capsule 10 TAKE ONE CAPSULE BY MOUTH TWICE A DAY FOR 5 DAYS TAKE ONE CAPSULE BY MOUTH TWICE A DAY FOR 5 DAYS SOLD: 03/22/2020 [facility] Insurance Providers Payer name Policy type / Coverage type Policy ID Covered constitution party ID Covered constitution party's relationship to sotelo Policy Sotelo Plan Information [id number] [facility] [id number] SP [id number] BCBS EMPIRE JOY DIV [id number] SP [id number] BCBS EMPIRE JOY DIV [id number] SP [id number] BCBS EMPIRE JOY DIV [id number] SP [id number] EXCELLUS BCBS [id number] Heather YLS [id number] [employer]BS [id number] [phone] [id number] RPR- Needs Payer Match [id number] Self [id number] [facility] Commercial Insurance Co. 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 [id number] BCBS EMPIRE JOY DIV [id number] ANSI-Commercial [id number] ANSI-Commercial [id number] ANSI-Commercial [id number] ANSI-Commercial [id number] ANSI-Commercial [id number] ANSI-Commercial [id number] ANSI-Commercial [id number] ANSI-Commercial [id number] ANSI-Commercial [id number] ANSI-Commercial [id number] [facility] ([facility]) [id number] [facility] [id number] ANSI-Commercial [id number] ANSI-Commercial [id number] ANSI-Commercial [id number] BCBS [facility] DIV [id number] SP [id number] [facility] [id number] S [id number] No Fault Insurance [id number] S [id number] [employer] [id number] S [id number] [facility] O [id number] S [id number] [facility] [id number] [id number] [facility] DIV [id number] SP [id number] [facility] [id number] S [id number] [employer] [id number] S [id number] [facility] [id number] S [id number] [facility] [id number] S [id number] [employer] HEA [id number] S [id number] [facility] [id number] SP [id number] BS [facility] DIV [id number] SP [id number] [facility] [id number] SP [id number] Problems, Conditions, and Diagnoses Code Display Name Description Problem Type Effective Dates Data Source(s) K21.9 Gastro-esophageal reflux disease without esophagitis GASTRO-ESOPHAGEAL REFLUX DISEASE WITHOUT ESOPHAGIT Diagnosis 12/30/2020 08:33:00 AM EDT [facility] F10.10 Alcohol abuse, uncomplicated ALCOHOL ABUSE, UNCOMPLICA RAMANA Diagnosis 12/21/2020 09:20:00 AM EDT [facility] R07.9 Chest pain, unspecified CHEST PAIN, UNSPECIFIED Diagno sis 12/21/2020 09:20:00 AM EDT [facility] Z23 Encounter for immunization ENCOUNTER FOR IMMUNIZATION Diagnosis 11/19/2020 10:24:00 AM EDT [facility] I31.9 Disease of pericardium, unspecified DISEASE OF P ERICARDIUM, UNSPECIFIED Diagnosis 11/19/2020 10:24:00 AM EDT [facility] R00.2 Palpitations Palpitations Diagnosis 09/16/2020 02:34:05 P M [facility] R07.89 Other chest pain Other chest pain Diagnosis 09/16/2020 02 :34:05 PM [facility] R07.9 Chest pain, unspecified Chest pain, unspecified Diagno sis 09/16/2020 02:34:05 PM [facility] Z20.828 Contact with and (suspected) exposure to other viral communicable diseases CONTACT W AND EXPOSURE TO OTH VIRAL COMMUNICABLE DISEASES Di agnosis 05/07/2020 03:20:00 PM EDT [facility] K21.9 [id number] Gastro-esophageal reflux disease without esophagitis Problem 12/30/2020 12:00:00 AM EDT W1 ([facility]) R07.9 [id number] Chest pain at rest Problem 11/19/2020 12:00: 00 AM EDT eCW1 ([facility]) I31.9 [id number] Chronic idiopathic pericarditis, unspecified complication status Problem 11/19/2020 12:00:00 AM EDT eCW1 ([facility]) Z82.49 FH: Ischemic heart disease at less than 60 years FH: Ischemic heart disease at less than 60 years Problem 10/06/2020 12:00:00 AM EDT MED ENT ([facility]) R00.2 Palpitations Palpitations [id number] 09/16/2020 12:00:00 A M [facility] R07.89 Other chest pain Other chest pain [id number] 09/16/2020 12 :00:00 AM [facility] Surgeries/Procedures Procedure Description Date Indications Data Source(s) OFFICE OUTPATIENT VISIT 25 MINUTES 12/29/2020 12:00:00 AM EDT [facility] ([facility]) CT Angiography Heart/Coronary Arteries/Bypass Grafts W/Contr ast 12/22/2020 12:00:00 AM EDT [facility] ([facility]) Electrocardiogram Complete 11/03/2020 12:00:00 AM EDT [facility] ([facility]) OFFICE OUTPATIENT VISIT 25 MINUTES 11/03/2020 12:00:00 AM EDT [facility] ([facility]) Electrocardiogram Complete 11/03/2020 12:00:00 AM EDT [facility] ([facility]) ECG Monitor/Review & Interpretation, W/Visual Superimpos Sca n 10/20/2020 12:00:00 AM EDT [facility]) ECG Monitor/Review & Interpretation, W/Visual Superimpos Sca n 10/14/2020 12:00:00 AM EDT [facility]) Electrocardiogram Complete 10/06/2020 12:00:00 AM EDT [facility] ([facility]) ECG Monitor/Recording W/Visual Superimposition Scanning 10/06/2020 12:00:00 AM EDT [facility]) Doppler Echocardiography Complete 10/06/2020 12:00:00 AM EDT [facility] ([facility]) Doppler Echocardiography Color Flow Velocity Mapping 10/06/2020 12:00:00 AM EDT [facility] ECHO [employer] Performance Continuous Electrocardio 10/06/2020 12:00:00 AM EDT [facility] OFFICE OUTPATIENT NEW 30 MINUTES 10/06/2020 12:00:00 A M EDT [facility] ([facility]) ECG Monitor/Recording W/Visual Superimposition Scanning 10/06/2020 12:00:00 AM EDT [facility]) ECG ROUTINE ECG W/LEAST 12 LDS W/I&R <td>POCT AMB EKG</td><td>Routine</td><td>09/16/2020 3:55 PM EST</td><td> Chest pain, unspecified type</td><td> </td> 09/16/2020 08:55:00 PM EST Chest pain, unspecified type [facility] Chest pain, unspecified type TROPONIN QUANTITATIVE <td>TROPONIN I</td><td>Routine</td><td>09/02/2020</td><td></td><td> </td> 09/02/2020 12:00:00 AM [facility] BLOOD COUNT COMPLETE AUTO&AUTO DIFRNTL WBC COUNT <td>C BC AND DIFFERENTIAL</td><td>Routine</td><td>09/02/2020</td><td></td><td> </td> 09/02/2020 12:00:00 AM EST [facility] THYROID STIMULATING HORMONE TSH <td>TSH</td><td>Routine</td><td>09/02/2020</td><td></td><td> </td> 09/02/2020 12:00:00 AM EST [facility] HEPATIC FUNCTION PANEL <td>HEPATIC FUNCTION PANEL</td><td>Routine</td><td>09/02/2020</td><td></td><td> </td> 09/02/2020 12:00:00 AM EST [facility] BASIC METABOLIC PANEL CALCIUM TOTAL <td>BASIC METABOLI C PANEL</td><td>Routine</td><td>09/02/2020</td><td></td><td> </td> 09/02/2020 12:00:00 AM EST [facility] Results ID Date Data Source [id number] 12/23/2020 10:35:00 AM EDT [facility] DATE OF EXAM: 12/22/2020ddendum BeginsL ivy-RADS 0 - Lung-RADS 0S - Incomplete. Recommendation: Additional lung cancer screening CT images and/or comparison to prior chest CT exam is needed. EXAM: CORONARY CT ANGIOGRAPHY WITH CALCIUM SCORE CLINICAL HISTORY: She has been experiencing chest discomfort several times a day. A stress echocardiogram was unremarkable. She is scheduled for a coronary CT angiogram to exclude an anomalous origin of her coronary arteries as etiology of her symptoms. TECHNIQUE: Using a 320 row detector scanner, a preliminary suction drum drier operator study was obtained, followed by coronary artery calcium protocol. Following administration of intravenous contrast, 0.5 mm collimated images were obtained through the coronary arteries. Data were transferred off-line for 3D reconstructions including Curved MPR and multi-planar imaging. ACQUISITION: Prospective ECG triggering was used. Heart rate at the time of acquisition was approximately 62 bpm. MEDICATIONS: 400mcg sl NTG and 5mg IV Metoprolol TECHNICAL QUALITY: Excellent FINDINGS:A calcium score was not performed. The coronary arteries arise in normal position. There is right coronary artery dominance. Left Main: The left main coronary artery is a large size vessel and originates form the left coronary sinus. It is patent with no evidence of plaque or stenosis. LAD: The left anterior descending artery is patent with no evidence of plaque or stenosis It gives off 1 patent diagonal branches. LCX: The left circumflex artery is patent with no evidence of plaque or stenosis. It gives off 1 patent obtuse marginal branches. RCA: The right coronary artery is patent with no evidence of plaque or stenosis. It arises normally from the right coronary sinus. It gives off patent PD and LV branches. Cardiac Valves: There is no thickening or calcifications in the aortic or mitral valves. Pericardium: The pericardial contour is preserved with no effusion, thickening or calcifications. IMPRESSION:1. Normal origin of the coronary arteries. 2. No evidence of coronary stenosis or plaque by Coronary CT Angiography. Management recommendation: Reassurance. Consider other non-atherosclerotic causes of chest pain. Addendum EndsRADIOLOGY OVER READ OF NONCARDIAC FINDINGS ON CORONARY CTA INDICATION: Other chest pain COMPARISON: None. TECHNIQUE: After the uneventful intravenous administration of contrast, axial imaging was obtained through the heart using thin section images. Sagittal and coronal reconstructions were obtained performed. Post processing with multiplanar and 3D imaging was performed. One or more of the following dose reduction techniques were utilized in effectively lowering the radiation dose for this examination: Automated Exposure Control, Adjustment of the mA and/or kV according to patient size, or Iterative Reconstruction. CONTRAST: 80 mL Omnipaque 350 FINDINGS: The imaged portions of the lung parenchyma demonstrate no nodules or infiltrates. No visualized adenopathy. The visualized upper abdomen is unremarkable. No suspicious osseous findings. IMPRESSION: Please see cardiology report for cardiac findings. No significant noncardiac findings. K7End of diagnostic report for accession: [id number] Interpreted: Blade Palma MDTranscribed: 12/22/2020 01:54 PMSigned: 12/23/2020 10:35 AM Blade Palma MD [facility] # [id number] BILL # [id number] 2MEM Name Value Range Interpretation Code Description Data Cristal e(s) Supporting Document(s) ID Date Data Source [id number] 11/03/2020 11:44:00 AM EDT [facility] ([facility]) Name Value Range Interpretation Code Description Data Cristal e(s) Supporting Document(s) Venipuncture Laboratory test result [facility] ([facility]) ID Date Data Source [id number] 11/03/2020 11:44:00 AM EDT [facility] ([facility]) Name Value Range Interpretation Code Description Data Cristal rce(s) Supporting Document(s) Glucose [Mass/volume] in Serum or Plasma 74 mg/dL 74-106 [facility] ([facility]) Labprint and transmitted at 155 11/03/20 [place] [employer] (ADA) Recommended Range is 65-99 mg/dL Urea nitrogen [Moles/volume] in Serum or Plasma 13 mg/dL 6-20 [facility] ([facility]) Creatinine [Mass/volume] in Serum or Plasma 0.7 mg/dL 0.5-1.3 [facility] ([facility]) Chloride [Moles/volume] in Serum or Plasma 108 mmol/L 98-107 Above high normal [facility] ([facility]) Potassium [Moles/volume] in Serum or Plasma 4.0 mmol/L 3.5-5.3 [facility] ([facility]) Sodium [Moles/volume] in Serum or Plasma 142 mmol/L 136-145 [facility] ([facility]) Carbon dioxide, total [Moles/volume] in Serum or Plasma 28 meq/L 20 -31 [facility] ([facility]) eGFR-female 96 mL/m/1.73m [facility] ([facility]) Anion Gap 6 mmol/L 7-16 Below low normal [facility] ([facility]) Calcium [Mass/volume] in Serum or Plasma 9.9 mg/dL 8.9-10.5 [facility] ([facility]) eGFR-Aa female 116 mL/m/1.73m [facility] ([facility]) <content>Normal Kidney Function or Mild Disease GFR >59 mL/min/1.73m2</content>
<content>Chronic Kidney Disease GFR 15-59 mL/min/1.73m2</content>
<content>Renal Failure GFR <15 mL/min/1.73m2</content>
<content></content> ID Date Data Source [id number] 10/06/2020 02:32:00 PM EDT [facility] ([facility]) Name Value Range Interpretation Code Description Data Cristal rce(s) Supporting Document(s) Holter Monitor Application 48 hours Laboratory test result [facility] ([facility]) ID Date Data Source [id number] 10/06/2020 01:07:00 PM EDT [facility] ([facility]) Name Value Range Interpretation Code Description Data Cristal rce(s) Supporting Document(s) EKG Laboratory test result [facility] ([facility]) ID Date Data Source [id number] 09/29/2020 12:00:00 AM EDT [facility] Name Value Range Interpretation Code Description Data Cristal rce(s) Supporting Document(s) SARS CRANDALL VIRUS 2 Ag Negative [facility] This lab was ordered by [facility] and reporte d by [facility]. ID Date Data Source [id number] 07/28/2020 12:00:00 AM EST [facility] Name Value Range Interpretation Code Description Data Cristal rce(s) Supporting Document(s) SARS CRANDALL VIRUS 2 Ag Negative [facility] This lab was ordered by [facility] and reporte d by [facility]. ID Date Data Source [id number] 07/21/2020 12:00:00 AM EST [facility] Name Value Range Interpretation Code Description Data Cristal rce(s) Supporting Document(s) SARS CRANDALL VIRUS 2 Ag Negative [facility] This lab was ordered by [facility] and reporte d by [facility]. ID Date Data Source [id number] Coronavirus 05/11/2020 10:29:56 AM EDT eCW1 ([facility]) Name Value Range Interpretation Code Description Data Cristal rce(s) Supporting Document(s) SARS-CoV-2, KELLI Not Detected SARS-CoV-2, KELLI eC W1 ([facility]) ID Date Data Source [id number] 05/07/2020 01:04:00 PM EDT [facility] Name Value Range Interpretation Code Description Data Cristal rce(s) Supporting Document(s) SARS coronavirus 2 RNA [facility] This lab was ordered by [facility] and reported by [facility]. ID Date Data Source [id number] 05/09/2020 06:06:00 [facility] Performed at: RN - [facility] [place] [id number] Director: Christine Oliveros MD, Phone: [phone] Name Value Range Interpretation Code Description Data Cristal rce(s) Supporting Document(s) SARS-CoV-2, KELLI Not Detected Not Detected [facility] This nucleic acid amplification test was developed and itsperformance characteristics determined by [facility] Nucleic acid amplification tests include PCRand TMA. This test has not been FDA cleared or approved.This test has been authorized by FDA under an Emergency UseAuthorization (EUA). This test is only authorized forthe duration of time the declaration that circumstancesexist justifying the authorization of the emergency use ofin vitro diagnostic tests for detection of SARS-CoV-2 virusand/or diagnosis of COVID-19 infection under (b)(1) of the Act, 21 U.S.C. 360bbb-3(b) (1), unless theauthorization is terminated or revoked sooner.When diagnostic testing is negative, the possibility of afalse negative result should be considered in the contextof a patient's recent exposures and the presence ofclinical signs and symptoms consistent with COVID-19. Anindividual without symptoms of COVID-19 and who is notshedding SARS-CoV-2 virus would expect to have a negative(not detected) result in this assay.Methodology: Nucleic Acid Amplification (KELLI) Procedure Social History Code Duration Value Status Description Data Source(s ) Smoking 12/30/2020 12:00:00 AM EDT Never Smoker completed Never S moker eCW1 ([facility]) Smoking 12/30/2020 12:00:00 AM EDT Never Smoker completed Never S moker eCW1 ([facility]) Smoking 12/30/2020 12:00:00 AM EDT Never Smoker completed Never S moker eCW1 ([facility]) Smoking 12/21/2020 12:00:00 AM EDT Never Smoker completed Never S moker eCW1 ([facility]) Smoking 11/19/2020 12:00:00 AM EDT Never Smoker completed Never S moker eCW1 ([facility]) Smoking 10/05/2020 12:00:00 AM EDT Never Smoker completed Never S moker eCW1 ([facility]) Smoking 10/05/2020 12:00:00 AM EDT Never Smoker completed Never S moker eCW1 ([facility]) Smoking 10/05/2020 12:00:00 AM EDT Never Smoker completed Never S moker eCW1 ([facility]) Alcohol intake 09/16/2020 12:00:00 AM EST Yes completed [facility] Smoking 09/16/2020 12:00:00 AM EST Never smoker completed Never s moker [facility] Vital Signs ID Date Data Source UNK Name Value Range Interpretation Code Description Data Source(s) Body height 64 [in_i] 64 [in_i] eCW1 ([facility]) Body weight 126 [lb_av] 126 [lb_av] eCW1 ([facility]) Body mass index (BMI) [Ratio] 21.63 kg/m2 21.63 kg/m2 eCW1 ([facility]) Body temperature 98.6 [degF] 98.6 [degF] eCW1 ( [facility]) Heart rate 92 /min 92 /min eCW1 ([facility]) Respiratory rate 20 /min 20 /min eCW1 ([facility]) Oxygen saturation in Arterial blood by Pulse oximetry 98 % 98 % eCW1 ([facility]) Systolic blood pressure 100 mm[Hg] 100 mm[Hg] e CW1 ([facility]) Diastolic blood pressure 62 mm[Hg] 62 mm[Hg] eCW1 ([facility]) Heart rate 70 /min 70 /min [facility] ([facility]) Body height 65.00 [in_i] 65.00 [in_i] [facility] ([facility] 5'5" Body weight 125.00 [lb_av] 125.00 [lb_av] MEDEN T ([facility]) Body mass index (BMI) [Ratio] 20.8 kg/m2 20.8 k g/m2 [facility] ([facility]) Systolic blood pressure 90 mm[Hg] 90 mm[Hg] M EDENT ([facility]) Diastolic blood pressure 68 mm[Hg] 68 mm[Hg] [facility] ([facility]) Body height 64 [in_i] 64 [in_i] eCW1 ([facility]) Body weight 125 [lb_av] 125 [lb_av] eCW1 ([facility]) Body weight 56.7 kg 56.7 kg eCW1 ([facility]) Body mass index (BMI) [Ratio] 21.45 kg/m2 21.45 kg/m2 W1 ([facility]) Body temperature 97.8 [degF] 97.8 [degF] eCW1 ( [facility]) Heart rate 88 /min 88 /min eCW1 ([facility]) Respiratory rate 18 /min 18 /min eCW1 ([facility]) Oxygen saturation in Arterial blood by Pulse oximetry 99 % 99 % eCW1 ([facility]) Systolic blood pressure 102 mm[Hg] 102 mm[Hg] e CW1 ([facility]) Diastolic blood pressure 58 mm[Hg] 58 mm[Hg] eCW1 ([facility]) Body height 64 [in_i] 64 [in_i] eCW1 ([facility]) Body weight 125 [lb_av] 125 [lb_av] eCW1 ([facility]) Body mass index (BMI) [Ratio] 21.45 kg/m2 21.45 kg/m2 eCW1 ([facility]) Body temperature 97.8 [degF] 97.8 [degF] eCW1 ( [facility]) Heart rate 60 /min 60 /min eCW1 ([facility]) Respiratory rate 20 /min 20 /min eCW1 ([facility]) Oxygen saturation in Arterial blood by Pulse oximetry 98 % 98 % eCW1 ([facility]) Systolic blood pressure 98 mm[Hg] 98 mm[Hg] e CW1 ([facility]) Diastolic blood pressure 60 mm[Hg] 60 mm[Hg] eCW1 ([facility]) Body height 65.00 [in_i] 65.00 [in_i] [facility] ([facility]) 5'5" Body weight 126.00 [lb_av] 126.00 [lb_av] MEDEN T ([facility]) Body mass index (BMI) [Ratio] 21.0 kg/m2 21.0 k g/m2 [facility] ([facility]) Systolic blood pressure 100 mm[Hg] 100 mm[Hg] M [facility]ENT ([facility]) Diastolic blood pressure 60 mm[Hg] 60 mm[Hg] [facility] ([facility]) Heart rate 77 /min 77 /min [facility] ([facility]) Body height 65.00 [in_i] 65.00 [in_i] [facility] ([facility]) 5'5" Body weight 126.00 [lb_av] 126.00 [lb_av] MEDEN T ([facility]) Diastolic blood pressure 68 mm[Hg] 68 mm[Hg] [facility] ([facility]) Heart rate 101 /min 101 /min [facility] ([facility]) Body mass index (BMI) [Ratio] 21.0 kg/m2 21.0 k g/m2 [facility] ([facility]) Systolic blood pressure 110 mm[Hg] 110 mm[Hg] M EDENT ([facility]) Body weight 130.4 [lb_av] 130.4 [lb_av] eCW[facility] Body height 65 [in_i] 65 [in_i] eCW1 ([facility]) Body mass index (BMI) [Ratio] 21.70 kg/m2 21.70 kg/m2 eCW1 ([facility]) Heart rate 87 /min 87 /min eCW1 ([facility]) Respiratory rate 18 /min 18 /min eCW1 ([facility]) Body temperature 97.7 [degF] 97.7 [degF] eCW1 ( [facility]) Systolic blood pressure 114 mm[Hg] 114 mm[Hg] e CW1 ([facility]) Diastolic blood pressure 70 mm[Hg] 70 mm[Hg] eCW1 ([facility]) Systolic blood pressure 108 mm[Hg] 108 mm[Hg] [facility] Diastolic blood pressure 50 mm[Hg] 50 mm[Hg] [facility] Heart rate 85 /min 85 /min [facility] Body height 165.1 cm 165.1 cm [facility] Body weight 59.421 kg 59.421 kg [facility] Body mass index (BMI) [Ratio] 21.80 kg/m2 21.80 kg/m2 [facility] Oxygen saturation in Arterial blood by Pulse oximetry 100 % 100 % [facility] ID Date Data Source [id number] 05/20/2021 06:18:00 AM EDT [facility] spital Name Value Range Interpretation Code Description Data Source(s) Weight Measurement Method 8 8 [facility] Weight [birth year] [facility] pital Temperature Source 7 7 [facility] Temperature 98.4 98.4 [facility] spital Respiratory Rate 18 18 [facility] Pulse Assessment Method 4 4 G [facility] Weight Measurement Method 8 8 [facility] Weight 1950 [address] [facility] pital Temperature Source 7 7 [facility] Temperature 98.4 98.4 [facility] spital Respiratory Rate 16 16 [facility] Pulse Rate 90 [address] [facility] 117/68 117/68 [facility] Patient Treatment Plan of Care Planned Activity Planned Date Details Description Data Source (s) Omeprazole 20 MG Delayed Release Oral Capsule 12/30/2020 12:00:00 A M EDT eCW1 ([facility]) Omeprazole 20 MG Delayed Release Oral Capsule 12/30/2020 12:00:00 A M EDT eCW1 ([facility]) Omeprazole 20 MG Delayed Release Oral Capsule 12/30/2020 12:00:00 A M EDT eCW1 ([facility])
[2021-05-20] MEDS ORDERED: ACETAMINOPHEN 325 MG TAB PO ONE (13:05)
[2021-05-20] MEDS ORDERED: ONDANSETRON 4 MG ORAL DISINTEGRATING TAB PO ONE (13:05)
--- OUTSIDE RECORDS SUMMARY | 2021-05-20 13:19 | CCD ---
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 130.4 [lb_av] 130.4 [lb_av] eCW1 ([facility]) Body height 65 [in_i] 65 [in_i] eCW1 ([facility]) Body mass index (BMI) [Ratio] 21.70 kg/m2 21.70 kg/m2 eCW1 ([facility]) Heart rate 87 /min 87 /min eCW1 ([facility]) Respiratory rate 18 /min 18 /min eCW1 ([facility]) Body temperature 97.7 [degF] 97.7 [degF] eCW1 ( [facility]) Systolic blood pressure 114 mm[Hg] 114 mm[Hg] e CW1 ([facility]) Diastolic blood pressure 70 mm[Hg] 70 mm[Hg] eCW1 ([facility]) Systolic blood pressure 108 mm[Hg] 108 mm[Hg] [facility] Diastolic blood pressure 50 mm[Hg] 50 mm[Hg] [facility] Heart rate 85 /min 85 /min [facility] Body height 165.1 cm 165.1 cm [facility] Body weight 59.421 kg 59.421 kg [facility] Body mass index (BMI) [Ratio] 21.80 kg/m2 21.80 kg/m2 [facility] Oxygen saturation in Arterial blood by Pulse oximetry 100 % 100 % [facility] ID Date Data Source [id number] 05/20/2021 09:24:00 AM EDT [facility] spital Name Value Range Interpretation Code Description Data Source(s) Weight Measurement Method 8 8 [facility] Weight [birth year] [facility] pital Temperature Source 7 7 [facility] Temperature 98.4 98.4 [facility] spital Respiratory Rate 18 18 [facility] Pulse Assessment Method 4 4 [facility] Weight Measurement Method 8 8 [facility] Weight [birth year] [facility] pital Temperature Source 7 7 [facility] Temperature 98.4 98.4 [facility] spital Respiratory Rate 16 16 [facility] Pulse Rate 90 90 [facility] pital Height 65 65 [facility] Blood Pressure 117/68 117/68 [facility] Patient Treatment Plan of Care Planned Activity Planned Date Details Description Data Source (s) Omeprazole 20 MG Delayed Release Oral Capsule 12/30/2020 12:00:00 A M EDT eCW1 ([facility]) Omeprazole 20 MG Delayed Release Oral Capsule 12/30/2020 12:00:00 A M EDT eCW1 ([facility]) Omeprazole 20 MG Delayed Release Oral Capsule 12/30/2020 12:00:00 A M EDT eCW1 ([facility])
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
[2021-05-20] MEDS ORDERED: MEDR4PAK PO (14:16)
[2021-05-20] MEDS ORDERED: CYCL5TAB PO (14:16)
[2021-05-20] MEDS ORDERED: ONDA4TAB6 PO (14:16)
[2021-05-20] MEDS ORDERED: CYCLOBENZAPRINE 5MG TABLET PO ONE (14:20)
[2021-05-20 14:46] VITALS: BP 128/72
== END 2021-05-20 14:47 | disposition home or self-care (01) ==
LOC: M ED 10:45
DX: S16.1XXA Strain of muscle, fascia and tendon at neck level, initial encounter (principal); V29.9XXA Motorcycle rider (driver) (passenger) injured in unspecified traffic accident, initial encounter; Y92.410 Unspecified street and highway as the place of occurrence of the external cause; Y93.89 Activity, other specified; Y99.8 Other external cause status; Z79.82 Long term (current) use of aspirin; Z88.1 Allergy status to other antibiotic agents; Z88.2 Allergy status to sulfonamides; Z88.8 Allergy status to other drugs, medicaments and biological substances; Z82.49 Family history of ischemic heart disease and other diseases of the circulatory system; Z80.9 Family history of malignant neoplasm, unspecified
CPT/HCPCS: 70450; 72125; 73030; 99283; Q0162

== ENCOUNTER → 2021-07-22 | Outpatient (CLI) | payer OTHER ==
[~2021-07-22] MED LIST changes: +CYCL5TAB PO; +MEDR4PAK PO; +ONDA4TAB6 PO
== END ==
LOC: M PLAIMG 10:05
PROVIDERS: ATTEND Family Medicine
DX: M54.2 Cervicalgia (principal); Z87.828 Personal history of other (healed) physical injury and trauma